=== PATIENT | male | born 1960 | race Caucasian/White ===

== ENCOUNTER 2021-08-13 17:52 | Emergency (ER) | payer BC, MEDICARE ==
[~2021-08-13 17:52] MED LIST: AMLODIPINE BESYL5 MG PO; ASPIR-LOW81 MG PO; ASPIRIN EC81 MG PO; ATORVASTATIN CA80 MG PO; CARVEDILOL3.125 MG PO; CIPROFLOXACIN500 M1 PO; CYMBALTA60 MG PO; GABAPENTIN300 MG PO; GLIPIZIDE5 MG PO; HUMALOG 10100 UNITS/ SC; HYDROCODON-ACE1 EAC4 PO; IMDUR ER TAB 3030 MG PO; INSULIN PEN NE1 EAC1 SQ; JANUVIA100 MG PO; LANTUS100 UNIT/1 SQ; LEVEMIR FL100 UNIT/1 SQ; LIPITOR TAB 2020 MG PO; LOPRESSOR50 MG PO; LORTAB 5-325 M1 EACH PO; MAGOX 400400 MG PO; NORVASC 5 MG TAB5 MG PO; NOVOLOG FL100 UNIT/1 INJ; NOVOLOG FL100 UNIT/1 SQ; ORAZINC220 MG PO; PEPCID20 MG PO; PHOSLO 667 MG667 MG PO; PRINIVIL10 MG PO; TAMSULOSIN HCL0.4 MG PO; VITAMIN C 500500 MG PO; ZYVOX 600 MG T600 MG PO; [UNRECOGNIZED DRUG - REMARK] PO
[2021-08-13 19:52] LABS: HEMOGLOBIN 14.1 gm/dl (14.0-17.5); RED BLOOD COUNT 4.21 M/UL (4.20-5.50); WHITE BLOOD COUNT 13.5 K/UL (4.5-11.0)
[2021-08-14 02:39] LABS: BODY FLUID SOURCE ASCITES; MONONUCLEAR CELLS 92 (75-100); RBC (AUTOMATED) 300 (0-100000); WBC (AUTOMATED) 83 (0-500)
[2021-08-14 02:40] LABS: POLYMORPHONUCLEAR % 8 (0-25)
[2021-08-14] MEDS ORDERED: LASIX20 MG PO (03:20)
[2021-08-14] MEDS ORDERED: ALDACTONE50 MG PO (03:20)
[2021-08-14 03:26] LABS: AMYLASE, BODY FLUID 28 U/L; LDH, BODY FLUID 101 U/L; TOTAL PROTEIN, BODY FLUID 3.9 gm/dL
== END 2021-08-14 03:30 | disposition home or self-care (01) ==
LOC: ER1 17:52
PROVIDERS: Family Medicine; Physician Assistant
DX: K74.60 Unspecified cirrhosis of liver (principal); E11.22 Type 2 diabetes mellitus with diabetic chronic kidney disease; N18.9 Chronic kidney disease, unspecified; F17.220 Nicotine dependence, chewing tobacco, uncomplicated; Z88.0 Allergy status to penicillin; Z99.2 Dependence on renal dialysis
CPT/HCPCS: 80053; 82150; 82945; 83605; 83615; 83690; 83986; 84157; 85025; 85610; 85730; 89051; 96365; 96375; 99284; J2270; J2405; P9047

== ENCOUNTER → 2021-08-25 | Outpatient (CLI) | payer BC, MEDICARE ==
[~2021-08-25] MED LIST changes: +ALDACTONE50 MG PO; +LASIX20 MG PO
== END ==
LOC: KOH-I 08-18 11:00 → CT 08:00 → OPSV 08:00
DX: R18.8 Other ascites (principal); N18.6 End stage renal disease; Z99.2 Dependence on renal dialysis
CPT/HCPCS: G0463

== ENCOUNTER → 2021-09-06 | Day surgery (SDC) | payer BC, MEDICARE ==
[~2021-09-06] MED LIST changes: +METOPROLOL SUCC50 MG PO; +PROTONIX 40 MG40 M1 PO
== END | disposition home or self-care (01) ==
LOC: OR 06:24
DX: K29.50 Unspecified chronic gastritis without bleeding (principal); K21.00 Gastro-esophageal reflux disease with esophagitis, without bleeding; K22.10 Ulcer of esophagus without bleeding; Z88.0 Allergy status to penicillin; D50.9 Iron deficiency anemia, unspecified; K74.60 Unspecified cirrhosis of liver; R18.8 Other ascites; E11.43 Type 2 diabetes mellitus with diabetic autonomic (poly)neuropathy; E11.22 Type 2 diabetes mellitus with diabetic chronic kidney disease; I12.0 Hypertensive chronic kidney disease with stage 5 chronic kidney disease or end stage renal disease; N18.6 End stage renal disease; Z99.2 Dependence on renal dialysis; Z20.822 Contact with and (suspected) exposure to COVID-19; Z89.429 Acquired absence of other toe(s), unspecified side; B96.81 Helicobacter pylori [H. pylori] as the cause of diseases classified elsewhere
CPT/HCPCS: 82962; J2704; J7040; U0002

== ENCOUNTER → 2021-10-27 | Outpatient (CLI) | payer MEDICARE, BC | LOC: NM 10:30 | DX: K31.89 Other diseases of stomach and duodenum (principal) | CPT/HCPCS: 78264; A9541 ==